=== PATIENT | male | born 1955 | race Caucasian/White ===

== ENCOUNTER 2016-06-14 03:00 | Emergency (ER) | payer SELFPAY ==
[~2016-06-14] VITALS: Ht 175.3 cm; Wt 83.9 kg
--- NOTE | 2016-06-14 03:00 | NUR ---
PT RYLEY WRIGHT, PREBOOK. TAKEN TO OF
[2016-06-14 03:02] VITALS: BP 164/87
--- NOTE | 2016-06-14 03:15 | NUR ---
Dr. Cruz evaluating patient
--- NOTE | 2016-06-14 03:16 | NUR ---
Pt refused Xray. Dr Cruz aware.
[2016-06-14 03:30] VITALS: BP 164/87
[2016-06-14] MEDS ORDERED: IBUPROFEN 600 MG TAB PO ONE (03:30)
--- NOTE | 2016-06-14 03:30 | NUR ---
Patient discharged with v/s stable. Written and verbal after care instructions given and explained. Patient verbalized understanding. Police with steady gait. All questions addressed prior to discharge. Advised to follow up with PMD.
[2016-06-14] MEDS ORDERED: IBUPROFEN 600 MG TAB ONE (03:33)
== END 2016-06-14 03:30 ==
LOC: MED 03:00
DX: S83.92XA Sprain of unspecified site of left knee, initial encounter (principal); X50.1XXA Overexertion from prolonged static or awkward postures, initial encounter; Y93.89 Activity, other specified; Y92.89 Other specified places as the place of occurrence of the external cause; Y99.8 Other external cause status